=== PATIENT | female | born 1995 | race Caucasian/White ===

== ENCOUNTER → 2022-10-23 | Outpatient (CLI) | payer OTHER | END | disposition home or self-care (01) | LOC: MRI 06:55 | PROVIDERS: ATTEND Specialist | DX: K80.10 Calculus of gallbladder with chronic cholecystitis without obstruction (principal) | CPT/HCPCS: 74181 ==

== ENCOUNTER 2022-11-01 04:47 | Day surgery (SDC) | payer OTHER ==
[~2022-11-01] VITALS: Ht 162.6 cm; Wt 85.7 kg
[~2022-11-01 04:47] MED LIST: ENSKYCE1 EACH PO
== END 2022-11-01 11:35 | disposition home or self-care (01) ==
LOC: CIR.AMB 04:47
PROVIDERS: ATTEND Specialist
DX: K81.1 Chronic cholecystitis (principal); Z20.822 Contact with and (suspected) exposure to COVID-19